=== PATIENT | female | born 1935 | race African-American/Black ===

== ENCOUNTER → 2018-02-15 | Outpatient (CLI) | payer MEDICARE ==
--- NOTE | 2018-02-15 14:06 | RADIOLOGY REPORT (SQ) ---
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 TECHNIQUE: Dynamic and static grayscale images acquired of the kidneys and bladder and recorded on P ACS. Additional selected color Doppler and spectral images recorded. LIMITATIONS: None. FINDINGS: RIGHT KIDNEY: The right kidney measures 8.6 cm. Diffuse increased echogenicity suggests underlying medical renal disease. A 4.6 x 4.0 x 4.0 cm cyst lower pole of the kidney. No evidence o f hydronephrosis. No hydroureter. LEFT KIDNEY: The left kidney measures 9.2 cm in length. Diffuse increased echogenicity of the kidne y suggests underlying medical renal disease. Two cysts are located in the upper pole of the kidney w hich measure 1.9 x 1.9 x 1.6 and 1.2 x 1.2 x 0.9 cm. No evidence of hydronephrosis. No hydroureter. BLADDER: No masses. OTHER FINDINGS: No other significant finding. IMPRESSION: 1 Diffuse increased echogenicity of the kidneys suggests underlying medical renal diseas e. 2 Bilateral renal cysts. 3. No hydronephrosis. TECHNICAL DOCUMENTATION: JOB ID: [id number] [employer]- All Rights Reserved Reading location - IP/workstation name: [email or web address]
== END ==
LOC: RAD 14:22
PROVIDERS: ATTEND Internal Medicine Nephrology
DX: I12.9 Hypertensive chronic kidney disease with stage 1 through stage 4 chronic kidney disease, or unspecified chronic kidney disease (principal); N18.9 Chronic kidney disease, unspecified; E78.00 Pure hypercholesterolemia, unspecified
CPT/HCPCS: 76770